=== PATIENT | male | born 1950 | race Two or more races ===

== ENCOUNTER 2025-01-24 15:20 | Inpatient (IN) | payer OTHER ==
[~2025-01-24] VITALS: Ht 165.1 cm; Wt 53.1 kg
[2025-01-24 15:48] LABS: PLATELET COUNT (AUTO) 118 K/uL (152-348); RED BLOOD CELL COUNT(AUTO) 4.73 MIL/uL (4.06-5.63); RED CELL DISTRIBUTION WIDTH 13.9 % (12.1-16.2); WHITE BLOOD COUNT (AUTO) 6.6 K/uL (3.6-10.2)
[2025-01-24 16:03] LABS: CREATININE 0.6 mg/dL (0.6-1.3); SODIUM SERUM 133 mmol/L (136-145); UREA NITROGEN, BLOOD 14 mg/dL (7-18)
[2025-01-24 16:08] LABS: ASPARTATE AMINOTRANSFERASE 13 U/L (15-37); TOTAL PROTEIN, SERUM 6.1 g/dL (6.4-8.2)
[2025-01-24] MEDS: IV NORMAL SALINE 1000 ML BAG IV ONE (16:33)
[2025-01-24] MEDS ORDERED: ASPI-495 PO (17:24)
[2025-01-24] MEDS ORDERED: OMEP20CA15 PO (17:24)
[2025-01-24] MEDS ORDERED: TAMS-3 PO (17:24)
[2025-01-24] MEDS ORDERED: CHOL400T32 PO (17:24)
[2025-01-24] MEDS ORDERED: ATOR20TA PO (17:24)
[2025-01-24] MEDS ORDERED: TELM80TA2 PO (17:24)
[2025-01-24] MEDS ORDERED: DIPH25CA83 PO (17:24)
[2025-01-24] MEDS ORDERED: ALEN70TA80 PO (17:24)
[2025-01-24] MEDS ORDERED: MULT-594 PO (17:24)
[2025-01-24] MEDS ORDERED: ALPR0.5T8 PO (17:24)
[2025-01-24] MEDS ORDERED: BETA15CR5 TP (17:24)
[2025-01-24] MEDS ORDERED: FINA5TAB3 PO (17:24)
[2025-01-24 18:27] LABS: *BILIRUBIN,URIN NEGATIVE (NEGATIVE); *BLOOD, URINE 3+ (NEGATIVE); *CLARITY,URINE CLEAR (CLEAR); *COLOR,URINE YELLOW (YELLOW); *KETONES,URINE NEGATIVE (NEGATIVE); *PROTEIN,URINE NEGATIVE (NEGATIVE); *UROBILINOGEN,URINE 0.2 E.U./dl (NORMAL); LEUKOCYTE ESTERASE ,URINE NEGATIVE (NEGATIVE); NITRITE, URINE NEGATIVE (NEGATIVE); UGLUCOSE NEGATIVE (NEGATIVE)
[2025-01-24] MEDS ORDERED: REMEDY ESSENTIAL ZINC PASTE 113 GM TP PRN (18:45)
[2025-01-24] MEDS ORDERED: ACETAMINOPHEN 325 MG TABLET PO PRN (18:45)
[2025-01-24] MEDS ORDERED: MAGNESIUM HYDROXIDE 30 ML LIQUID UDC PO PRN (18:45)
[2025-01-24] MEDS ORDERED: ONDANSETRON 4 MG/2 ML VIAL IV PRN (18:45)
[2025-01-24 21:00] VITALS: BP 163/80
[2025-01-24 21:30] VITALS: BP 150/72; TEMP 98.1; O2SAT 97
[2025-01-24] MEDS ORDERED: PIPERACILLIN SODIUM/TAZOBACTAM 3.375 G in IV DEXTROSE 5% 50 ML IV SCH (22:00)
[2025-01-24] MEDS ORDERED: PIPERACILLIN/TAZOBACTAM/D5W 100 ML IV ONE (22:12)
[2025-01-24] MEDS: TAMSULOSIN HCL 0.4 MG CAP.SR.24H PO SCH (23:17)
[2025-01-24] MEDS: FINASTERIDE 5 MG TABLET PO SCH (23:17)
[2025-01-24] MEDS: ALPRAZOLAM 0.5 MG TABLET PO SCH (23:17)
[2025-01-24] MEDS: PIPERACILLIN SODIUM/TAZOBACTAM 3.375 G in IV DEXTROSE 5% 50 ML IV SCH (23:30)
[2025-01-25 06:29] VITALS: BP 138/68; TEMP 98.3; O2SAT 95
[2025-01-25] MEDS: PANTOPRAZOLE SODIUM 40 MG TABLET.DR PO SCH (06:58)
[2025-01-25 07:17] LABS: PLATELET COUNT (AUTO) 112 K/uL (152-348); RED BLOOD CELL COUNT(AUTO) 4.38 MIL/uL (4.06-5.63); RED CELL DISTRIBUTION WIDTH 14.2 % (12.1-16.2); WHITE BLOOD COUNT (AUTO) 4.0 K/uL (3.6-10.2)
[2025-01-25 07:43] LABS: ASPARTATE AMINOTRANSFERASE 12 U/L (15-37); CREATININE 0.6 mg/dL (0.6-1.3); SODIUM SERUM 136 mmol/L (136-145); TOTAL PROTEIN, SERUM 5.5 g/dL (6.4-8.2); UREA NITROGEN, BLOOD 9 mg/dL (7-18)
[2025-01-25] MEDS: CHOLECALCIFEROL 1,000 UNIT TABLET PO SCH (08:23)
[2025-01-25] MEDS: LOSARTAN POTASSIUM 50 MG TABLET PO SCH (08:23)
[2025-01-25] MEDS: MULTIVITAMINS,THERAPEUTIC TABLET PO SCH (08:23)
[2025-01-25] MEDS ORDERED: PANTOPRAZOLE SODIUM 40 MG VIAL IV SCH (09:00)
[2025-01-25 11:01] VITALS: BP 123/55; TEMP 98.4; O2SAT 96
[2025-01-25] MEDS ORDERED: SIME125C PO (11:41)
[2025-01-25] MEDS: PIPERACILLIN SODIUM/TAZOBACTAM 3.375 G in IV DEXTROSE 5% 100 ML IV SCH (14:20)
[2025-01-25 15:16] VITALS: BP 141/63; TEMP 98.3; O2SAT 98
[2025-01-25] MEDS: ATORVASTATIN 20 MG TABLET PO SCH (17:21)
[2025-01-25] MEDS: IV NS 1000 ML 1,000 ML IV PRN (19:00)
[2025-01-25 19:35] VITALS: BP 124/64; TEMP 98.5; O2SAT 98
[2025-01-26] MEDS: diphenhydrAMINE 25 MG CAP PO ONE (00:33)
[2025-01-26 06:40] VITALS: BP 157/82; TEMP 98; O2SAT 100
[2025-01-26 07:22] LABS: PLATELET COUNT (AUTO) 112 K/uL (152-348); RED BLOOD CELL COUNT(AUTO) 4.64 MIL/uL (4.06-5.63); RED CELL DISTRIBUTION WIDTH 14.0 % (12.1-16.2); WHITE BLOOD COUNT (AUTO) 4.7 K/uL (3.6-10.2)
[2025-01-26 07:44] LABS: CREATININE 0.8 mg/dL (0.6-1.3); SODIUM SERUM 135 mmol/L (136-145); UREA NITROGEN, BLOOD 9 mg/dL (7-18)
[2025-01-26] MEDS: ALENDRONATE SODIUM 70 MG TABLET PO SCH (09:29)
[2025-01-26 11:10] VITALS: BP 147/67; TEMP 98.2; O2SAT 98
[2025-01-26] MEDS: MIRALAX 17 GM POWD.PACK PO SCH (13:09)
[2025-01-26 15:34] VITALS: BP 119/71; TEMP 98.4; O2SAT 97
[2025-01-26] MEDS: ENSURE ENLIVE (VAN) 240 ML LIQUID PO SCH (17:25)
[2025-01-26 19:48] VITALS: BP 144/80; TEMP 98.9; O2SAT 98
[2025-01-26] MEDS: ZOLPIDEM 5 MG TABLET PO PRN (22:05)
[2025-01-27 05:43] VITALS: BP 155/80; TEMP 98.4; O2SAT 97
[2025-01-27 11:35] VITALS: BP 146/69; TEMP 97.6; O2SAT 99
[2025-01-27] MEDS ORDERED: MULT-24 PO (11:41)
[2025-01-27] MEDS ORDERED: CHOL100062 PO (11:41)
[2025-01-27] MEDS ORDERED: PANT40TA49 PO (11:41)
[2025-01-27] MEDS ORDERED: AMOX-430 PO (11:42)
[2025-01-27] MEDS: LACTULOSE 20 G/30 ML LIQUID UDC PO ONE (12:00)
[2025-01-27 15:34] VITALS: BP 120/60; TEMP 98.4; O2SAT 94
== END 2025-01-27 18:00 | disposition home or self-care (01) | DRG 690 ==
LOC: ER 15:42 → MED 20:57 → MEDSURG3 20:57 → UNDOADMIN 20:57
PROVIDERS: ADMIT Nurse Practitioner Acute Care; ATTEND Nurse Practitioner Acute Care
DX: N13.6 Pyonephrosis (principal); N40.0 Benign prostatic hyperplasia without lower urinary tract symptoms; Z95.5 Presence of coronary angioplasty implant and graft; E78.5 Hyperlipidemia, unspecified; N30.91 Cystitis, unspecified with hematuria; I10 Essential (primary) hypertension; R79.89 Other specified abnormal findings of blood chemistry; Z88.2 Allergy status to sulfonamides; Z79.899 Other long term (current) drug therapy; I25.10 Atherosclerotic heart disease of native coronary artery without angina pectoris; K57.30 Diverticulosis of large intestine without perforation or abscess without bleeding
CPT/HCPCS: 36415; 71045; 83605; 83690; 83735; 84100; 84484; 85018; 85025; 85730; 86850; 86900; 86901; 87040; 87086; A4606; A4663; G0378; J2543; J7040; J8499; Q0163